=== PATIENT | male | born 1980 | race Caucasian/White ===

== ENCOUNTER 2017-04-19 13:47 | Emergency (ER) | payer OTHER ==
[~2017-04-19] VITALS: Ht 175.3 cm; Wt 80.3 kg
--- NOTE | 2017-04-19 13:55 | ED SKIN/ALLERGY COMPLAINT ---
History of Present Illness General Chief Complaint: Animal/Insect Bite Stated Complaint: GOT STUNG BY BEES YESTEDAY, NOT ALLERGIC Source: patient Exam Limitations: no limitations Vital Signs & Intake/Output Vital Signs & Intake/Output Vital Signs Date Time Temp Pulse Resp B/P B/P Pulse O2 O2 Flow FiO2 Mean Ox Delivery Rate 04/19 1431 98.3 74 15 124/81 99 Room Air Room Air 04/19 1349 98.4 76 18 123/85 98 Room Air Allergies Coded Allergies: NO KNOWN ALLERGIES (07/20/11) Reconcile Medications Methylprednisolone. (Medrol) 4 MG TAB.DS.PK 1 DP PO AD INFLAMMATION 6 on day 1 then reduce by one tablet daily until gone Triage Note: 36 YO MALE TO TRIAGE C/O BEE STING X4 YESTERDAY. STATES HE HAS NO KNOWN ALLERGY BUT THE SITES ARE SWOLLEN AND RED. STATES SITES ARE ALSO ITCHY. PT STUNG ON R HAND, R SHOULDER, AND R LEG. Triage Nurses Notes Reviewed? yes Onset: Gradual Duration: getting worse Timing: recent history Severity: severe Severity Numbers: 7 Location: extremities Possible Factors: insect sting HPI: Patient is a 36-year-old male who presents emergency and that yesterday morning patient was stung twice to the right inner thigh region where he had a gradual onset of redness and itching sensations however he was stung again later on that evening to his right dorsal aspect of his hand and his right lateral aspect of his shoulder where he states that over the night the burning sensation and itching and swelling has worsened. Patient has not taken any medications prior to arrival however has been applying baking soda. Denies any fever, chills, tongue swelling lip swelling shortness of breath difficulty breathing difficulty swallowing and is otherwise without complaints. Denies any history of anaphylaxis or allergic reactions to bee stings Patient did not see any retained foreign body such as a stinger (KB SWENSON) Past History Travel History Traveled to [place] past 21 day No Medical History Any Pertinent Medical History? see below for history Neurological: NONE EENT: NONE Cardiovascular: NONE Respiratory: NONE Gastrointestinal: NONE Hepatic: NONE Renal: NONE Musculoskeletal: NONE Psychiatric: IV drug abuse, substance abuse Endocrine: NONE Blood Disorders: NONE Cancer(s): NONE SENIOR RESEARCH ASSOCIATE/Reproductive: NONE Surgical History Surgical History: non-contributory Psychosocial History What is your primary language Bengali Tobacco Use: Current Daily Use Daily Tobacco Use Amount/Type: => 5 Cigarettes daily Family History Hx Contributory? No (KB SWENSON) Review of Systems Review of Systems Constitutional: Reports: no symptoms. EENTM: Reports: no symptoms. Respiratory: Reports: no symptoms. Cardiovascular: Reports: no symptoms. GI: Reports: no symptoms. Genitourinary: Reports: no symptoms. Musculoskeletal: Reports: no symptoms. Skin: Reports: see HPI, erythema. Neurological/Psychological: Reports: no symptoms. Hematologic/Endocrine: Reports: no symptoms. Immunologic/Allergic: Reports: no symptoms. All Other Systems: Reviewed and Negative (KB SWENSON) Physical Exam Physical Exam General Appearance: no apparent distress, alert Skin: intact Comments: Well-developed well-nourished person in no acute distress HEENT: Normal EENT exam, extraocular motion intact, no nystagmus. Pupils equally round and reactive to light and accommodation. Nose is atraumatic. External auditory canal and Tympanic membranes clear. Pharynx normal. No swelling or edema. No pharyngeal swelling no tongue swelling no lip swelling Neck: Supple, no lymphadenopathy, normal range of motion without pain or tenderness no stridor Back: Nontender, Cardiovascular: Regular rate and rhythms no murmurs rubs or gallops, normal JVP Respiratory: Chest nontender. No respiratory distress.breath sounds clear to auscultation bilaterally Extremity: No edema, no calf tenderness to palpation, normal and equal pulses. Neuro: Alert oriented x3, motor sensory normal, Psych: Mood and affect is normal, memory and judgment is normal. Diagram Body: 1) Noted erythema and warmth and mild tenderness no foreign body no swelling no induration 2) Noted erythema warmth and tenderness for elective range of motion of the flexion extension abduction no foreign body Hands, Dorsum: 1) Noted erythema swelling and warmth no foreign body full active range of motion noted with 1-5 digit flexion and extension (KB SWENSON) Progress Differential Diagnosis: abscess/cellulitis, allergic reaction, anaphylaxis, angioedema, contact dermatitis, BEE STING, FB RETENTION Plan of Care: Current Medications Sig/Asif Start time Last Medication Dose Stop Time Status Admin Diphenhydramine HCl 50 MG ONCE ONE 04/19 1430 UNVr (Benadryl) 04/19 143 Famotidine 20 MG ONCE ONE 04/19 1430 UNVr (Pepcid) 04/19 1431 Prednisone 60 MG ONCE ONE 04/19 1430 UNVr 04/19 1431 Patient has no concerns of anaphylaxis or angioedema. No stridor noted oxygen saturation was 98% room air. Patient has no exam findings of retained foreign body such as a stinger. Patient will be treated for concerns of an allergic reaction due to bee sting (KB SWENSON) Departure Departure Disposition: HOME OR SELF CARE Condition: Stable Clinical Impression Primary Impression: Bee sting reaction Referrals: ZARIA ARIAS,DAMIR Angeles (PCP/Family) Additional Instructions: As discussed begin the prescription of the Medrol Dosepak for inflammation tomorrow as you've received prednisone in the emergency room today. Begin over- the-counter Benadryl and Pepcid as directed for itching complaints. If symptoms worsen or if he develop a new concerning symptom return to emergency room. Prescriptions waiting at [facility] pharmacy Departure Forms: Customer Survey General Discharge Information Prescriptions: Current Visit Scripts Methylprednisolone. (Medrol) 1 DP PO AD #1 DP 6 on day 1 then reduce by one tablet daily until gone (KB SWENSON) PA/BATTERY ENGINEER Co-Sign Statement Statement: ED Attending supervision documentation- [] I saw and evaluated the patient. I have also reviewed all the pertinent lab results and diagnostic results. I agree with the findings and the plan of care as documented in the PA's/BATTERY ENGINEER's documentation. [X] I have reviewed the ED Record and agree with the PA's/BATTERY ENGINEER's documentation. [] Additions or exceptions (if any) to the PAs/BATTERY ENGINEER's note and plan are summarized below: [] (DESTINY ARIAS,LINH)
[2017-04-19] MEDS ORDERED: MEDROL4 M2 PO (14:24)
[2017-04-19 14:31] VITALS: BP 124/81
== END 2017-04-19 14:33 ==
LOC: ERH 13:47
DX: S70.361A Insect bite (nonvenomous), right thigh, initial encounter (principal); S60.561A Insect bite (nonvenomous) of right hand, initial encounter; S40.261A Insect bite (nonvenomous) of right shoulder, initial encounter; W57.XXXA Bitten or stung by nonvenomous insect and other nonvenomous arthropods, initial encounter; Y93.9 Activity, unspecified; Y92.9 Unspecified place or not applicable